=== PATIENT | female | born 1960 | race Caucasian/White ===

== ENCOUNTER 2018-09-21 14:35 | Outpatient (CLI) | payer OTHER | END 2018-09-21 14:36 | disposition home or self-care (01) | LOC: RAD 14:35 ==

== ENCOUNTER 2018-10-12 10:02 | Outpatient (CLI) | payer OTHER | END 2018-10-12 10:03 | disposition home or self-care (01) | LOC: RAD 10:02 ==

== ENCOUNTER → 2018-10-15 | Outpatient (CLI) | payer OTHER | LOC: RAD 11:26 ==

== ENCOUNTER 2018-10-16 07:09 | Outpatient (CLI) | payer OTHER | END 2018-10-16 07:10 | disposition home or self-care (01) | LOC: LAB 07:09 | DX: Z00.00 Encounter for general adult medical examination without abnormal findings (principal); M75.92 Shoulder lesion, unspecified, left shoulder; M25.512 Pain in left shoulder ==